=== PATIENT | female | born 1935 | race Two or more races ===

== ENCOUNTER 2018-08-01 10:49 | Outpatient (CLI) | payer MEDICARE, OTHER ==
[~2018-08-01 10:49] MED LIST: ACET325T53 PO; ASPI-1152 PO; ATOR40TA PO; DICY10CA13 PO; DOCU-141 PO; GLIM2TAB2 PO; GLUC1KIT IM; HYDR-4076 PO; INSU100I14 SQ; JANUMET PO; LEVO50TA8 PO; LISI-603 PO; MAGN400O6 PO; MAGN400T6 PO; METO-356 PO; NYST5ORA PO; PANT40TA2 PO; SODI1TAB3 PO; SPIR25TA6 PO; SULI200T4 PO; ZOLP5TAB2 PO
[2018-08-01] MEDS ORDERED: CT SWABBABLE VALVE TRANS SET 1 EA INFUS.SET MC ONE (11:14)
[2018-08-01] MEDS ORDERED: IOHEXOL-300 100 ML VIAL IV ONE (11:14)
[2018-08-01] MEDS ORDERED: IV NS 0.9% 250 ML IV ONE (11:15)
== END 2018-08-01 23:59 | disposition home or self-care (01) ==
LOC: CT 10:49
PROVIDERS: ATTEND Internal Medicine Hematology & Oncology
DX: J90 Pleural effusion, not elsewhere classified (principal); K57.30 Diverticulosis of large intestine without perforation or abscess without bleeding; K86.2 Cyst of pancreas; I51.7 Cardiomegaly; R16.1 Splenomegaly, not elsewhere classified
CPT/HCPCS: 71270; 74178; J7050; Q9967

== ENCOUNTER 2018-08-25 13:00 | Outpatient (CLI) | payer MEDICARE, OTHER | END 2018-08-25 23:59 | disposition home or self-care (01) | LOC: WOU 13:00 | PROVIDERS: ATTEND Surgery | DX: R59.9 Enlarged lymph nodes, unspecified (principal); E07.9 Disorder of thyroid, unspecified; D64.9 Anemia, unspecified | CPT/HCPCS: G0463; Z7610 ==